=== PATIENT | female | born 1975 | race Two or more races ===

== ENCOUNTER 2017-08-14 15:30 | Emergency (ER) | payer OTHER ==
[~2017-08-14] VITALS: Ht 157.5 cm; Wt 86.2 kg
[~2017-08-14 15:30] MED LIST: OTEZLA1 EAC1 PO
--- NOTE | 2017-08-14 15:32 | Emergency Room Report ---
History of Present Illness General Source: Patient Present Illness HPI [id number] with lightheaded for 1 hour after finishing cleaning house Associated with tunnel vision, palpitations No associated headache, fever/chills, nausea/vomiting, chest pain, SOB, abd pain , urinary complaints Also occurred 1 week ago, fell back and hit head, had stitches. Had blood work, CT done by PMD which was "negative" No other medical problems Doesnt take daily medications Had cataract surgery left eye Right eye with cataracts Denies blurry vision Allergies: Coded Allergies: No Known Allergies (Unverified , 08/14/17) Patient History Past Medical History: none Past Surgical History: none Pertinent Family History: none Social History: Denies: smoking, alcohol use, drug use Now: No Immunizations: UTD Reviewed Nursing Documentation: PMH: Agreed, PSxH: Agreed Review of Systems All Other Systems: negative except mentioned in HPI Physical Exam Sp02 EP Interpretation: reviewed, normal General Appearance: normal inspection, well appearing, no apparent distress, alert, GCS 15, non-toxic, obese Head: normocephalic, atraumatic Eyes: bilateral eye PERRL, bilateral eye EOMI, bilateral eye other - Right eye , unreactive pupil. Left eye PERRLA ENT: normal ENT inspection, hearing grossly normal, normal voice Neck: normal inspection, full range of motion, supple, no bony tend Respiratory: normal inspection, lungs clear, normal breath sounds, no respiratory distress, no retraction, no wheezing Cardiovascular #1: regular rate, rhythm, no edema Gastrointestinal: normal inspection, normal bowel sounds, non tender, soft, no guarding, no hernia Genitourinary: no CVA tenderness Musculoskeletal: normal inspection, back normal, normal range of motion, Raffaele' s Sign negative Neurologic: normal inspection, alert, oriented x3, responsive, 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 Afebrile. Gait is normal Low suspicion for SAH, meningitis given well appearance, no focal deficits, no headache Labs: Mild leuks 12k. UA grossly infected Given IVF NS hydration Initial PO dose Keflex given in ED Unlikely pyelo as no CVAT, no fever, not systemically ill ECG NSR. No ischemia. No PVCs on monitor Reassured patient DC home EKG Diagnostic Results Rate: normal Rhythm: NSR ST Segments: no acute changes ASA given to the pt in ED: No Rhythm Strip Diag. Results EP Interpretation: yes Rate: 96 Rhythm: NSR, no PVC's, no ectopy Status: improved Disposition: HOME, SELF-CARE Scripts Cephalexin* (KEFLEX*) 500 Mg Capsule 500 MG ORAL Q12H for 7 Days, #13 CAP 0 Refills Prov: MAGALIS KERR M.D. 08/14/17 MAGALIS KERR M.D. Aug 14, 2017 15:32
[2017-08-14 15:35] VITALS: BP 156/78
[2017-08-14 15:53] LABS: BASOPHILS % (AUTO) 0.7 % (0.0-2.0); EOSINOPHILS % (AUTO) 1.3 % (0.0-3.0); LYMPHOCYTES % (AUTO) 16.9 % (20.0-45.0); MEAN CORPUSCULAR HEMOGLOBIN 28.8 PG (27.0-31.0); MEAN CORPUSCULAR HGB CONC 31.7 G/DL (32.0-36.0); MEAN CORPUSCULAR VOLUME 91 FL (80-99); MEAN PLATELET VOLUME 7.4 FL (6.5-10.1); MONOCYTES % (AUTO) 3.9 % (1.0-10.0); NEUTROPHILS % (AUTO) 77.2 % (45.0-75.0); PLATELET COUNT 295 K/UL (150-450); RED BLOOD COUNT 4.59 M/UL (4.20-5.40); RED CELL DISTRIBUTION WIDTH 12.4 % (11.6-14.8); WHITE BLOOD COUNT 12.7 K/UL (4.8-10.8)
[2017-08-14 15:54] LABS: APPEARANCE,URINE SLIGHTLY CLOUDY; KETONES,URINE NEGATIVE (NEGATIVE); LEUKOCYTE ESTERASE ,URINE 3+ (NEGATIVE); NITRITE,URINE NEGATIVE (NEGATIVE); PH,URINE 5 (4.5-8.0); PROTEIN,URINE 3+ (NEGATIVE); UROBILINOGEN,URINE NORMAL MG/DL (0.0-1.0)
[2017-08-14 16:07] LABS: BACTERIA,URINE FEW /HPF; SQUAMOUS EPITHELIAL CELL,UR FEW /LPF (NONE/OCC); WBC,URINE 20-30 /HPF (0 - 2)
[2017-08-14] MEDS ORDERED: KEFLEX500 MG ORAL (16:12)
[2017-08-14] MEDS ORDERED: Cephalexin 500mg cap ORAL ONE (16:15)
[2017-08-14 16:39] LABS: ALANINE AMINOTRANSFERASE 18 U/L (12-78); ALBUMIN/GLOBULIN RATIO 0.8 (1.0-2.7); ANION GAP 10 mmol/L (5-15); ASPARTATE AMINO TRANSFERASE 13 U/L (15-37); CALCIUM 9.6 MG/DL (8.5-10.1); CARBON DIOXIDE 25 MMOL/L (21-32); CHLORIDE 107 MMOL/L (98-107); CKMB < 0.5 NG/ML (0.0-3.6); CREATININE 1.2 MG/DL (0.55-1.30); GLOMERULAR FILTRATION RATE 49.5 mL/min (>60); POTASSIUM 3.8 MMOL/L (3.5-5.1); SODIUM 142 MMOL/L (136-145); TOTAL PROTEIN 7.7 G/DL (6.4-8.2)
[2017-08-14 16:50] VITALS: BP 154/81
--- NOTE | 2017-08-15 18:34 | Cardiology Report ---
APPROVED REPORT EKG Measurement Heart [id number] ID [id number] Normal sinus rhythm Normal ECG
== END 2017-08-14 16:53 | disposition home or self-care (01) ==
LOC: EDBD 15:30 → EMR 16:31
DX: R42 Dizziness and giddiness (principal); N39.0 Urinary tract infection, site not specified
CPT/HCPCS: 36415; 80053; 80307; 81003; 81025; 82550; 82553; 84484; 85025; 87086; 87181; 93005; 96361; 96374; 99284